=== PATIENT | male | born 1955 | race Caucasian/White ===

== ENCOUNTER → 2024-02-07 08:49 | Outpatient (REF) | payer OTHER, MEDICAID, SELFPAY ==
--- NOTE | 2024-02-07 09:01 | CA_ITS ---
Transthoracic Echocardiogram Patient (Last, First, Middle): Parag Potter, Gender: Male Date of : 1955 Age: 68 Procedure Date: 02/07/2024 Procedure Type: Transthoracic Echocardiogram Location: OP Height: 175.26 cm Weight: 113.4 kg BSA: 2.27 m2 Heart Rate: 91 bpm BP: 118 / 80 mmHg Surgery Technician: SB Referring MD: Keisha BARTLETT Symptoms: R55 SYNCOPE Study Quality: Adequate w contrast ECG Rhythm: Sinus Conclusions: - The left ventricular systolic function is normal. The visually estimated ejection fraction is between 55-60%. - There is moderate septal asymmetric hypertrophy. - No obvious valvular pathology seen on this study. - There is mild dilatation of the sinuses of Valsalva measuring 4.20 cm and mild dilatation of the ascending aorta measuring 4.10 cm. Findings Procedure Information Contrast agent, definity, is being given per protocol without apparent complications. The quality of the study was technically difficult. The study quality is limited by patients body habitus. Left Ventricle Normal left ventricular cavity size. There is mildly increased left ventricular wall thickness. The left ventricular systolic function is normal. The visually estimated ejection fraction is between 55-60%. Evidence suggests grade I (mild) diastolic dysfunction. There is moderate septal asymmetric hypertrophy. Right Ventricle Normal right ventricular cavity size and systolic function. Atria Both atria are normal in size. Aortic Valve There is a normal trileaflet aortic valve. There is no aortic valve stenosis. There is no aortic valve regurgitation. Mitral Valve The mitral valve appears normal. There is no mitral valve regurgitation. There is no mitral valve stenosis. Pulmonic Valve The pulmonic valve is likely normal. Tricuspid Valve There is trace tricuspid valve regurgitation. There is no evidence of pulmonary hypertension. Great Vessels There is mild dilatation of the sinuses of Valsalva measuring 4.20 cm and mild dilatation of the ascending aorta measuring 4.10 cm. Venous The inferior vena cava is normal in size and collapses greater than 50% with inspiration. Pericardium/Pleural There is no evidence of pericardial effusion. Prior Study Comparison No prior study available for comparison. Recommendations, Care & Conclusions No obvious valvular pathology seen on this study. Measurements 2D Linear Measurements IVSd: 1.30 0.6-0.9/0.6-1.0 cm LVIDd: 3.78 3.9-5.3/4.2-5.9 cm LVIDd Index: 1.67 2.4-3.2/2.2-3.1 cm/m2 LVIDs: 2.63 2.0-3.6 cm LVPWd: 1.14 0.7-1.1 cm LA Diam: 2.80 2.7-3.8/3.0-4.0 cm LAIDs Index: 1.23 1.5-2.3 cm/m2 LV Mass: 194.10 67-162/88-224 g LV Mass Index: 85.51 43-95/49-115 g/m2 LVOT Diam: 2.30 3.0+(-)1.3 cm 2D Systolic Function EF 4C: 68.50 >55% EF 2C: 73.70 >55% EF BiP: 71.30 >55% Mitral Valve MV Pk E: 0.42 MV PK A: 0.85 MV Decel Time: 187.00 E/A: 0.50 E'Lateral: 8.27 E'Medial: 5.87 E/E' Med: 7.20 E/E' Lat: 5.10 PHT: 55.00 MVA PHT: 4.00 Decel [place]: 2.25 Aortic Valve AoV Pk Aguila: 0.88 AoV Pk Grad: 3.00 ZACH: 3.73 LVOT LVOT Pk Aguila: 0.74 LVOT Mn Aguila: 0.53 LVOT VTI: 0.12 LVOT Pk Grad: 2.00 LVOT Mn Grad: 1.00 LVOT Diam: 2.30 LVOT Area: 4.15 Diastolic Function MV Pk E: 0.42 MV Pk A: 0.85 E/A: 0.50 E'Medial: 5.87 E/E' Med: 7.20 E' Laterial: 8.27 E/E' Lat: 5.10 Right Ventricle TAPSE (mm): 23.90 TVS' Aguila: 11.30 Tricuspid Valve TR Pk Aguila: 2.09 TR Pk Grad: 17.00 RA Press: 3.00 RVSP: 20.00 Great Vessels Aorta Sinus of Valsalva: 4.20 2.0-3.5 cm Ao Asc: 4.10 2.1-3.4 cm Ao Arch: 2.80 Pulmonary Valve PV Pk Aguila: 0.60 Peak PV Grad: 1.00 Updated in Other Vendor System with Status of Final Alec Flores MD electronically signed on 02/08/2024 10:57:35 AM with status of Final
== END ==
LOC: HO.CARD 08:49
PROVIDERS: PCP Physician Assistant; Visit Provider Physician Assistant
DX: R55 Syncope and collapse (principal)
CPT/HCPCS: 93306; Q9957

== ENCOUNTER → 2024-02-07 09:01 | Outpatient (BNV) | payer OTHER, SELFPAY | PROVIDERS: PCP Physician Assistant; Visit Provider Internal Medicine | DX: I42.2 Other hypertrophic cardiomyopathy (principal) | CPT/HCPCS: 93306 ==